=== PATIENT | male | born 1995 | race Caucasian/White ===

== ENCOUNTER 2019-01-15 17:28 | Observation (INO) | payer OTHER, SELFPAY ==
[2019-01-15] VITALS (21 sets, daily range): BP systolic 138–172; BP diastolic 72–101; PULSE 113–152; RESP 16–29; TEMP 37.3–37.8; O2SAT 94–100; BMI 23.6
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
[2019-01-15 18:12] LABS: Add Manual Diff / Slide Review NO; Basophils Absolute Auto 100 /uL (0-100); Basophils Percent Auto 0.8 % (0-2); Eosinophils Absolute Auto 0 /uL (0-450); Eosinophils Percent Auto 0.4 % (2-4); Hemoglobin 15.3 g/dL (13.5-17.5); Lymphocytes Absolute Auto 1700 /uL (1100-4500); Lymphocytes Percent Auto 15.4 % (25-40); Mean Corpuscular Hemoglobin 30.7 PG (26-34); Mean Corpuscular Volume 90.4 fL (80-100); Monocytes Absolute Auto 1000 /uL (0-900); Monocytes Percent Auto 8.9 % (3-14); Neutrophils Absolute Auto 8200 /uL (1500-7000); Neutrophils Percent Auto 74.5 % (50-75); Platelet Count 329 X10^3/uL (150-400); Red Blood Cell Count 4.98 X10^6/uL (4.5-5.9); White Blood Cell Count 11.1 X10^3/uL (4.5-11.0)
--- NOTE | 2019-01-15 18:15 | PC.NURSE ---
dry and pink.
[2019-01-15 18:17] LABS: Alanine Aminotransferase 18 IU/L (21-72); Albumin 5.2 g/dL (3.5-5.0); Albumin Globulin Ratio 1.7 (1.0-2.8); Alkaline Phosphatase 69 U/L (38-126); Aspartate Aminotransferase 36 IU/L (17-59); BUN Creatinine Ratio 7.5 (6-22); Bilirubin Total 1.5 mg/dL (0.2-1.3); Blood Urea Nitrogen 9 mg/dL (9-20); Calcium 10.1 mg/dL (8.4-10.2); Carbon Dioxide 20 mmol/L (22-32); Chloride 102 mmol/L (98-107); Estimated Glomerular Filt Rate > 60.0 mL/min (>60); Ethanol (ETOH) < 10 mg/dL; Globulin 3.1 g/dL (1.7-4.1); Glucose 130 mg/dL (70-100); HEMOLYSIS 16 (0-50); Potassium 3.1 mmol/L (3.4-5.1); Sodium 143 mmol/L (137-145); Total Protein 8.3 g/dL (6.3-8.2)
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
--- NOTE | 2019-01-15 18:29 | PC.NURSE ---
[facility]
[2019-01-15 18:30] LABS: Appearance Urine UA CLEAR; Bilirubin Urine UA NEGATIVE (NEGATIVE); Color Urine UA YELLOW; Glucose Urine UA NEGATIVE (Negative); Ketones Urine UA TRACE (NEGATIVE); Leukocyte Esterase Urine UA NEGATIVE (NEGATIVE); Nitrite Urine UA NEGATIVE (Negative); Occult Blood Urine UA 1+ (Negative); Protein Urine UA TRACE (Negative); Urobilinogen Urine UA 0.2 E.U./dL (0.2)
[2019-01-15 18:36] LABS: Urine Amphetamines Negative (Negative); Urine Barbiturates Negative (Negative); Urine Benzodiazepines Negative (Negative); Urine Cocaine Negative (Negative); Urine MDMA Negative (Negative); Urine Methadone Negative (Negative); Urine Methamphetamines Negative (Negative); Urine Morphine/Opi cutoff 2000 Negative (Negative); Urine Oxycodone Negative (Negative); Urine Phencyclidine Negative (Negative); Urine Tetrahydrocannabinol Positive (Negative); Urine Tricyclic Antidepressant Negative (Negative)
[2019-01-15 18:46] LABS: Bacteria Urine Many (>30); Culture Indicated Urine Cult Not Indicated; Hyaline Casts Urine 1-5/LPF; RBC Urine 0-1/HPF (0-5/HPF); WBC Urine 0-1/HPF (0-5/HPF)
[2019-01-15] MEDS: KETAMINE 500 MG/5 ML INJ 150 MG IV (18:47)
--- NOTE | 2019-01-15 19:11 | PC.NURSE ---
out of bed. held down by 4 er staff , medicated for comfort. with good relief.
--- NOTE | 2019-01-15 19:11 | PC.NURSE ---
with playground monitor, end tidal co2. reading at 32. sat 96 % with 2lpm via nc. hr 135. dr upton at bs.
--- NOTE | 2019-01-15 19:22 | PC.NURSE ---
cassandra chaney x2 at bs. with legal blood draw.
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
--- NOTE | 2019-01-15 20:02 | PC.NURSE ---
pt continually removed his pulse ox monitor from his finger. Replaced O2 saturation on his toe.. Pt asking questions and able to verbalize needs. Blankets provided for comfort. This RN remains at bedside.
--- NOTE | 2019-01-15 21:53 | PC.NURSE ---
Addendum entered by Geno Walker R.N. 01/15/19 23:27: 2220 - Pt continues not responding with staff. Head turned to the left, Pupils 6mm and reactive. Skin warm to touch, temp 99.1. lópez catheter removed as ordered. Addendum entered by Geno Walker R.N. 01/15/19 22:26: 2215 - Pt pulled off business process associate. Staring out room door way. Non-verbal at this time. Dr. Acosta in to assess pt. Pt non-responsive to interaction with staff at this time. Only to remove wires. Order obtained to place 2 point soft wrist restraints to prevent pt self-harm. Original Note: 2034 - Pt to room from ER. [address] Transfer to bed via sliderboard restraints secured. Pt asks questions,What are you looking at? What are you doing? however does not respond to questions. When asked a question, pt only stares. Pupils equal and reactive. Hr tachycardic in the 120's at rest. Does not respond to questions of pain. FLACC 0. Oriented to room and routine. Call light in reach. 2129 - Reviewed plan of care with Dr. Acosta. Notified that restraint order expires at 2144. Discussed pt mentation. No new orders. 2144 - Attempt to discuss restraints, safety, and plan of care with pt. Pt only stares out the door way. Notified of plan of care and encouraged pt to remain calm and cooperative. Restraints removed.
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
[2019-01-16 03:40] VITALS: BP 146/96; PULSE 94; RESP 18; TEMP 37.2; O2SAT 100
--- NOTE | 2019-01-16 07:17 | P.PN_ITS ---
Exam Vital Signs (past 8 hours): - 01/15/19 23:57 01/16/19 03:40 Temperature 99.1 F 99.0 F Pulse Rate 125 H 94 H Respiratory Rate 20 18 Blood Pressure 154/91 H 146/96 H Pulse Oximetry 98 100 Oxygen Delivery Method Room Air Oxygen Flow Rate 2 Objective Labs Result Diagrams: 01/15/19 18:00 01/15/19 18:00 Labs: Laboratory Results - last 24 hr 01/15/19 01/15/19 01/15/19 18:00 18:00 18:05 WBC 11.1 H RBC 4.98 Hgb 15.3 Hct 45.0 MCV 90.4 MCH 30.7 MCHC 34.0 RDW 13.0 Plt Count 329 Neut % (Auto) 74.5 Lymph % (Auto) 15.4 L [place] % (Auto) 8.9 Eos % (Auto) 0.4 L Baso % (Auto) 0.8 Neut # (Auto) 8200 H Lymph # (Auto) 1700 [place] # (Auto) 1000 H Eos # (Auto) 0 Baso # (Auto) 100 Sodium 143 Potassium 3.1 L Chloride 102 Carbon Dioxide 20 L BUN 9 Creatinine 1.20 Estimated GFR > 60.0 BUN/Creatinine Ratio 7.5 Glucose 130 H Calcium 10.1 Total Bilirubin 1.5 H AST 36 ALT 18 L Alkaline Phosphatase 69 Total Protein 8.3 H Albumin 5.2 H Globulin 3.1 Albumin/Globulin Ratio 1.7 Urine Color Yellow Urine Appearance Clear Urine pH 6.0 Ur Specific [place] 1.020 Urine Protein Trace H Urine Glucose (UA) Negative Urine Ketones Trace H Urine Occult Blood 1+ H Urine Nitrate Negative Urine Bilirubin Negative Urine Urobilinogen 0.2 Ur Leukocyte Esterase Negative Urine RBC 0-1/hpf Urine WBC 0-1/hpf Urine Bacteria Many (>30) H Hyaline Casts 1-5/lpf Ur Culture Indicated? Cult not indicated Nasal Screen MRSA (PCR) Urine Opiates Screen Ur Oxycodone Screen Urine Methadone Screen Ur Barbiturates Screen U Tricyclic Antidepress Ur Phencyclidine Scrn Ur Amphetamines Screen U Methamphetamines Scrn Ur MDMA Scrn (Ecstasy) U Benzodiazepines Scrn Urine Cocaine Screen U Marijuana (THC) Screen Ethyl Alcohol < 10 01/15/19 01/15/19 18:05 21:05 WBC RBC Hgb Hct MCV MCH MCHC RDW Plt Count Neut % (Auto) Lymph % (Auto) [place] % (Auto) Eos % (Auto) Baso % (Auto) Neut # (Auto) Lymph # (Auto) [place] # (Auto) Eos # (Auto) Baso # (Auto) Sodium Potassium Chloride Carbon Dioxide BUN Creatinine Estimated GFR BUN/Creatinine Ratio Glucose Calcium Total Bilirubin AST ALT Alkaline Phosphatase Total Protein Albumin Globulin Albumin/Globulin Ratio Urine Color Urine Appearance Urine pH Ur Specific [place] Urine Protein Urine Glucose (UA) Urine Ketones Urine Occult Blood Urine Nitrate Urine Bilirubin Urine Urobilinogen Ur Leukocyte Esterase Urine RBC Urine WBC Urine Bacteria Hyaline Casts Ur Culture Indicated? Nasal Screen MRSA (PCR) Negative for mrsa Urine Opiates Screen Negative Ur Oxycodone Screen Negative Urine Methadone Screen Negative Ur Barbiturates Screen Negative U Tricyclic Antidepress Negative Ur Phencyclidine Scrn Negative Ur Amphetamines Screen Negative U Methamphetamines Scrn Negative Ur MDMA Scrn (Ecstasy) Negative U Benzodiazepines Scrn Negative Urine Cocaine Screen Negative U Marijuana (THC) Screen Positive H Ethyl Alcohol Assessment & Plan Assessment & Plan narrative: I received a call from nursing at 0700 that this patient removed his own IV removed his soft restraints and left the hospital. He refused to stay or sign an ama document. Quality VTE Deep Vein Thrombosis/Pulmonary Embolism Present on Admission: No
--- NOTE | 2019-02-13 16:38 | PC.NURSE ---
Late entry- I had taken over patient care at 1930 after pt had already had CT. Pt remained in 4 point restraint with me sitting at bedside 1:1 care until time of admission.
== END 2019-01-16 07:00 | disposition left against medical advice (07) ==
LOC: ED 19:48 → AC 20:00 → ICU 20:50
PROVIDERS: Emergency Medicine; Admitting Provider Surgery; Emergency Provider Emergency Medicine; Visit Provider Surgery
DX: R41.82 Altered mental status, unspecified (principal); V87.7XXA Person injured in collision between other specified motor vehicles (traffic), initial encounter; F12.90 Cannabis use, unspecified, uncomplicated; Z78.1 Physical restraint status; Z53.21 Procedure and treatment not carried out due to patient leaving prior to being seen by health care provider; R45.1 Restlessness and agitation; R00.0 Tachycardia, unspecified
CPT/HCPCS: 36415; 70450; 72125; 80053; 80305; 80320; 81001; 85025; 87797; 93041; 94770; 96374; 99219; 99285; 99291; 99292; G0378

== ENCOUNTER 2019-01-16 11:20 | Emergency (ER) | payer OTHER, SELFPAY ==
[2019-01-15 20:35] VITALS: BMI 23.6
[2019-01-16 11:27] VITALS: BP 141/94; PULSE 102; RESP 12; TEMP 37.4; O2SAT 100
[2019-01-16 11:34] VITALS: BP 138/89; PULSE 88; RESP 18; O2SAT 98
--- NOTE | 2019-01-16 11:36 | DI.RAD.S_ITS ---
PROCEDURE: XR CHEST 1V INDICATIONS: altered mental status TECHNIQUE: One view of the chest was acquired. COMPARISON: None. FINDINGS: Surgical changes and devices: None. Lungs and pleura: Lungs are clear. No pleural effusions or pneumothorax. Mediastinum: Mediastinal contours appear normal. Heart size is normal. Bones and chest wall: No suspicious bony lesions. Overlying soft tissues appear unremarkable. IMPRESSION: No acute cardiopulmonary process is evident. Dictated by: Carroll Tucker M.D. on 01/16/2019 at 11:21 Approved by: Carroll Tucker M.D. on 01/16/2019 at 11:22
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
--- NOTE | 2019-01-16 11:49 | DI.CT.S_ITS ---
PROCEDURE: CT HEAD/BRAIN WO CON INDICATIONS: altered mental status TECHNIQUE: Noncontrast 4.5 mm thick angled axial sections acquired from the foramen magnum to the vertex, with coronal and sagittal reformats. For radiation dose reduction, the following was used: automated exposure control, adjustment of mA and/or kV according to patient size. COMPARISON: [facility], CT, CT HEAD/BRAIN WO CON, 01/15/2019, 18:46. FINDINGS: Image quality: Excellent. CSF spaces: Basal cisterns are patent. No extra-axial fluid collections. Ventricles are normal in size and shape. Brain: No midline shift. No intracranial masses or hemorrhage. Bustos-white matter interface is normal. Skull and face: Calvarium and visualized facial bones are intact, without suspicious lesions. Sinuses: Visualized sinuses and mastoids are clear. IMPRESSION: Stable head CT. No acute intracranial hemorrhage. Dictated by: Carroll Tucker M.D. on 01/16/2019 at 10:53 Approved by: Carroll Tucker M.D. on 01/16/2019 at 10:54
[2019-01-16 12:00] VITALS: BP 147/100; PULSE 98; RESP 18; O2SAT 100
[2019-01-16 12:25] LABS: Add Manual Diff / Slide Review NO; Basophils Absolute Auto 100 /uL (0-100); Basophils Percent Auto 0.5 % (0-2); Eosinophils Absolute Auto 0 /uL (0-450); Eosinophils Percent Auto 0.2 % (2-4); Hematocrit 43.2 % (41-53); Hemoglobin 14.7 g/dL (13.5-17.5); Lymphocytes Absolute Auto 1200 /uL (1100-4500); Lymphocytes Percent Auto 8.7 % (25-40); Mean Corpuscular Hemoglobin 30.9 PG (26-34); Mean Corpuscular Volume 90.9 fL (80-100); Monocytes Absolute Auto 1200 /uL (0-900); Monocytes Percent Auto 8.5 % (3-14); Neutrophils Absolute Auto 11600 /uL (1500-7000); Neutrophils Percent Auto 82.1 % (50-75); Platelet Count 259 X10^3/uL (150-400); Red Blood Cell Count 4.75 X10^6/uL (4.5-5.9); Red Cell Distribution Width 13.1 % (11.6-14.8); White Blood Cell Count 14.2 X10^3/uL (4.5-11.0)
[2019-01-16] MEDS: SODIUM CHLORIDE 0.9% 1,000 ML 1000 ML IV (12:27)
[2019-01-16 12:29] LABS: INR 1.2 (0.9-1.3); Prothrombin Time 14.3 SECONDS (10.1-12.7)
[2019-01-16 12:30] VITALS: BP 134/89; PULSE 96; RESP 19; O2SAT 100
[2019-01-16 12:31] LABS: PTT Partial Thromboplastin Tim 31 SECONDS (26.4-36.2)
[2019-01-16 12:33] LABS: Acetaminophen < 10 ug/mL (10-30); Alanine Aminotransferase 22 IU/L (21-72); Albumin 4.7 g/dL (3.5-5.0); Albumin Globulin Ratio 1.6 (1.0-2.8); Alkaline Phosphatase 57 U/L (38-126); Aspartate Aminotransferase 24 IU/L (17-59); BUN Creatinine Ratio 11.1 (6-22); Bilirubin Total 1.8 mg/dL (0.2-1.3); Blood Urea Nitrogen 10 mg/dL (9-20); Calcium 9.9 mg/dL (8.4-10.2); Carbon Dioxide 26 mmol/L (22-32); Chloride 104 mmol/L (98-107); Estimated Glomerular Filt Rate > 60.0 mL/min (>60); Ethanol (ETOH) < 10 mg/dL; Glucose 89 mg/dL (70-100); HEMOLYSIS < 15 (0-50); Potassium 3.5 mmol/L (3.4-5.1); Salicylate < 1.0 mg/dL (<20); Sodium 140 mmol/L (137-145); Total Protein 7.7 g/dL (6.3-8.2)
[2019-01-16 12:42] LABS: Ammonia (NH3) < 9.0 umol/L (9-30); Lactate (Lactic Acid) 1.2 mmol/L (0.7-2.1)
[2019-01-16 12:45] LABS: Troponin I < 0.012 ng/mL (0.01-0.034)
[2019-01-16 12:49] LABS: Prolactin 7.7 ng/mL (3.7-17.9)
[2019-01-16 13:00] VITALS: BP 138/87; PULSE 104; RESP 10; O2SAT 100
[2019-01-16 13:14] LABS: Thyroid Stimulating Hormone 1.15 uIU/mL (0.47-4.68)
--- NOTE | 2019-01-16 13:35 | PC.NURSE ---
Pt was brought back into ER via medics. Pt has very little verbal responses. Pt only follows certain directions. Brother at bedside assisting with questions.
[2019-01-16 14:31] LABS: Bacteria Urine None Seen
[2019-01-16 14:48] LABS: Urine Amphetamines Negative (Negative); Urine Barbiturates Negative (Negative); Urine Benzodiazepines Negative (Negative); Urine Cocaine Negative (Negative); Urine MDMA Negative (Negative); Urine Methadone Negative (Negative); Urine Methamphetamines Negative (Negative); Urine Morphine/Opi cutoff 2000 Negative (Negative); Urine Oxycodone Negative (Negative); Urine Phencyclidine Negative (Negative); Urine Tetrahydrocannabinol Negative (Negative); Urine Tricyclic Antidepressant Negative (Negative)
[2019-01-16 14:58] LABS: Amorphous Sediment Urine 2+; Culture Indicated Urine Cult Not Indicated; Mucus Urine 1+ (Negative); RBC Urine 1-5/HPF (0-5/HPF); WBC Urine 1-5/HPF (0-5/HPF)
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
--- NOTE | 2019-01-16 15:24 | PC.NURSE ---
Parents in room with pt. Pt appears more alert but refuses to speak with this nurse. Appears to talk with parents while nurse not in room.
--- NOTE | 2019-01-16 18:22 | PC.NURSE ---
DCR will not be here for hours
--- NOTE | 2019-01-16 19:09 | PC.NURSE ---
Pt with towel over eyes trying to walk around. Brakes had been removed from bed. Mom states having difficulty redirecting pt back to bed. Mom requesting pt to be moved to room 13 for his safety. Provider ok for room change at this time.
--- NOTE | 2019-01-16 19:21 | PC.NURSE ---
PT moved to room 13. Continues to wear towel around eyes. continues to refuse to talk to this rn. before moving rooms. Pt pacing in room.
--- NOTE | 2019-01-16 19:30 | PC.NURSE ---
Pt in rm 13 with door locked. Pt currently hitting door with fists. Pts parents are in room with him
--- NOTE | 2019-01-16 19:51 | PC.NURSE ---
Pt laying on floor crying. Refusing to take towel off of head
--- NOTE | 2019-01-16 20:17 | PC.NURSE ---
pt sitting on ground. seems calm at the moment
--- NOTE | 2019-01-16 21:25 | PC.NURSE ---
Pt pacing around room, trying to exit through the door leading the outside.
--- NOTE | 2019-01-16 21:43 | PC.NURSE ---
Unlocked bathroom door in rm 13 for pt to use. Pt opened both doors and attempted to prop them open with the mattress. Redirected pt and placed the mattress back appropriately. After pt used the restroom he stated that being in that bathroom was starting to make him panic, and feel panicky. Pt now calm in room with mom
--- NOTE | 2019-01-16 22:42 | PC.NURSE ---
Patient talking with parents in room, patient changing from agitated to calm without instigation from family. Patient easily calmed down by mother's casas directions. Patient stretcher removed from room d/t patient threading arms through the bars and pulling against them. Mattress placed on floor and patient is safe from harm. Parents at bedside, water given to patient and family.
--- NOTE | 2019-01-16 23:17 | PC.NURSE ---
Patient is has been pacing the room and talking loudly, now patient is sitting on the floor with his back to the door.
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
--- NOTE | 2019-01-16 23:45 | PC.NURSE ---
Patient is quietly laying on the mattress fidgeting with his gown and mattress parts
--- NOTE | 2019-01-17 | PC.NURSE ---
Patient was agitated including throwing his mattress against the wall and throwing himself on the mattress. Patient is now lying quietly on the mattress
--- NOTE | 2019-01-17 00:16 | PC.NURSE ---
Patient is lying quietly on the mattress.
--- NOTE | 2019-01-17 00:30 | PC.NURSE ---
Patient is lying quietly on the mattress.
--- NOTE | 2019-01-17 00:47 | PC.NURSE ---
Patient is quietly laying on the mattress, appearing to be asleep.
--- NOTE | 2019-01-17 01:00 | PC.NURSE ---
Patient is quietly sleeping on the mattress
--- NOTE | 2019-01-17 01:15 | PC.NURSE ---
Patient is pacing and knocking on the door asking for water, called security to help
--- NOTE | 2019-01-17 01:30 | PC.NURSE ---
Provided patient with a cup of water, with help from security and RAND MAKER we gave it to him and took away the empty cup when he was done, he went back to laying in bed
--- NOTE | 2019-01-17 01:45 | PC.NURSE ---
Patient is quiet, pacing and standing at door
--- NOTE | 2019-01-17 02:02 | PC.NURSE ---
Patient was pacing and standing at the door. Asked for a fan, turned down the room temperature instead. Is now laying in bed
--- NOTE | 2019-01-17 02:19 | PC.NURSE ---
Patient is laying quietly on the bed.
--- NOTE | 2019-01-17 02:30 | PC.NURSE ---
Patient is lying in bed, appearing to be asleep
--- NOTE | 2019-01-17 02:45 | PC.NURSE ---
Patient is laying quietly on the mattress
--- NOTE | 2019-01-17 03:00 | PC.NURSE ---
Got the patient some ice when he asked, he is now laying in bed
--- NOTE | 2019-01-17 03:15 | PC.NURSE ---
Patient is lying quietly in bed
--- NOTE | 2019-01-17 03:30 | PC.NURSE ---
Patient is standing by the door knocking, he asked for gum I offered him some food, he declined. He continues to knock on the door, he does not reply when I ask him if he needs anything
--- NOTE | 2019-01-17 03:45 | PC.NURSE ---
Patient is standing by the door. He knocked at the door and asked for food and a blanket, so I got it for him. while in the room I noticed that he voided on the floor so we got him a urinal and told him that if he needed to pee to use the urinal
--- NOTE | 2019-01-17 04:00 | PC.NURSE ---
Patient appeared to spit up the pudding I gave him earlier, he is pacing the room and rattling the urinal
--- NOTE | 2019-01-17 04:18 | PC.NURSE ---
Patient paced the room banging urinal on the wall and door, Patient tore up his cup of ice and wrote help in it in feces before slipping it under the door. He violently hit the urinal on the door and knocked his hand. Patient called for help when I asked if he needed anything he said he needed the bathroom opened so that he could wash a wound. I got the nurse and the nurse talked to him. The nurse told the patient that once he was calm for a few minutes he would go in and help get him sorted. Patient is now laying on the mattress.
--- NOTE | 2019-01-17 04:30 | PC.NURSE ---
Patient is lying in the mattress, whistling
--- NOTE | 2019-01-17 04:45 | PC.NURSE ---
Patient is sitting on the mattress whistling
--- NOTE | 2019-01-17 05:00 | PC.NURSE ---
Patient is lying still on the mattress
--- NOTE | 2019-01-17 05:01 | PC.NURSE ---
Patient is lying quietly on the mattress
--- NOTE | 2019-01-17 05:14 | PC.NURSE ---
Patient is pacing the room. Knocking on the door, when I ask him if he needs anything he does not respond.
--- NOTE | 2019-01-17 05:19 | PC.NURSE ---
Patient was standing at the door asking for a timer to see when his family will get here.I let him know that isn't possible, I encouraged him to sit down and relax, now he is laying on the mattress.
--- NOTE | 2019-01-17 05:30 | PC.NURSE ---
Patient is standing at the door asking october I open the door and when I answer he continues to repeat the question over and over.
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
--- NOTE | 2019-01-17 06:04 | PC.NURSE ---
Nurse tried to give patient a washcloth while the patient was near the far side of the room, and the patient charged the door, pushing passed the nurse and down the DI hallway, I called 911 and let them know what was happening, when I was done with dispatchers I went down the DI hallway along with the three officers. The officers restrained the patient and returned the patient back to room 13. The officers helped to hold the patient while the nurses administered medication. The patient tried to push part the officers multiple times and when the doctor tried to talk with the patient tried to push past him too. With the help of the officers we were able to keep the patient into the room. The patient is now lying on the mattress under his blankets.
[2019-01-17] MEDS: HALOPERIDOL 5 MG/ML VIAL IM (06:09)
[2019-01-17] MEDS: LORazepam 2 MG/ML INJ IM (06:10)
[2019-01-17] MEDS: diphenhydrAMINE 50 MG/ML VIAL IM (06:10)
--- NOTE | 2019-01-17 06:15 | PC.NURSE ---
Patient is lying quietly on the mattress
--- NOTE | 2019-01-17 06:32 | PC.NURSE ---
The nurse and myself went into the room and got vital signs on the patient, the patient was somewhat sedated and calm. The patient shivered, fidgeted, and tried to get up while we were taking the blood pressure, so we got the patient a warm blanket and encouraged him to remain calm. Currently the patient is laying on the mattress under his blankets.
--- NOTE | 2019-01-17 06:33 | PC.NURSE ---
He was lying on mattress on floor,I was able to assess him for his safety and take vital signs,he stated I want to stand up.I was able to calmly talk to him and he then laid supine after sitting up.I saw some bruising on his knuckles where he had been banging on the door earlier.
--- NOTE | 2019-01-17 06:45 | PC.NURSE ---
Patient is lying on the mattress under the blankets
--- NOTE | 2019-01-17 07:04 | PC.NURSE ---
went in the room and did and exam on him.His lungs were clear and his pulses were strong.
--- NOTE | 2019-01-17 07:10 | PC.NURSE ---
Patient is lying on the mattress under the blankets, nurse, housekeeping and I went in to clean the room, the dirty blankets, pillow and urinal is out of the room and housekeeping mopped the floor.
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
[2019-01-17 09:15] VITALS: BP 127/79; PULSE 84; RESP 20; O2SAT 93
--- NOTE | 2019-01-17 09:24 | PC.NURSE ---
VS on Pt done. Pt refuses temp. S/W father who states mother is on her way.
--- NOTE | 2019-01-17 10:32 | PC.NURSE ---
Pt is 1:1 with staff observation. Mother had been in room but has left to sleep in car. Gives cell phone number and requests we call her when patients awakens.
--- NOTE | 2019-01-17 13:48 | PC.NURSE ---
[facility] to come again and re evaluate patient
--- NOTE | 2019-01-17 14:21 | PC.NURSE ---
Mom is given paper scrubs as she wants to work on getting pt awake for [facility] evaluation. Father is sleeping in room 3
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
--- NOTE | 2019-01-17 15:03 | PC.NURSE ---
Pt yelling in room. Awake. Mom is removed from room. [facility] [place] is called
--- NOTE | 2019-01-17 16:28 | PC.NURSE ---
Taylor from [facility] here to s/w pt and detain for grave disability.
--- NOTE | 2019-01-17 18:04 | PC.NURSE ---
Pts dad reports that the pt ate half of his sandwich and drank some fluids
[2019-01-17 19:46] VITALS: BP 133/88; PULSE 106; RESP 19; TEMP 36.4; O2SAT 98
[2019-01-17 19:48] LABS: Add Manual Diff / Slide Review NO; Basophils Absolute Auto 100 /uL (0-100); Basophils Percent Auto 0.9 % (0-2); Eosinophils Absolute Auto 200 /uL (0-450); Eosinophils Percent Auto 1.8 % (2-4); Hematocrit 42.3 % (41-53); Hemoglobin 14.5 g/dL (13.5-17.5); Lymphocytes Absolute Auto 1300 /uL (1100-4500); Lymphocytes Percent Auto 10.5 % (25-40); Mean Corpuscular HGB Conc 34.3 % (30-36); Mean Corpuscular Hemoglobin 30.9 PG (26-34); Mean Corpuscular Volume 90.1 fL (80-100); Monocytes Absolute Auto 1100 /uL (0-900); Monocytes Percent Auto 9.2 % (3-14); Neutrophils Absolute Auto 9600 /uL (1500-7000); Neutrophils Percent Auto 77.6 % (50-75); Platelet Count 242 X10^3/uL (150-400); Red Blood Cell Count 4.69 X10^6/uL (4.5-5.9); Red Cell Distribution Width 12.8 % (11.6-14.8); White Blood Cell Count 12.4 X10^3/uL (4.5-11.0)
[2019-01-17] MEDS: HALOPERIDOL 5 MG TABLET PO (19:55)
--- NOTE | 2019-01-17 19:56 | PC.NURSE ---
Discussed w/ DCR (Taylor) and Dr. Santiago regarding ongoing seclusion. Pt has had periods of agitation today but has not attempted to leave as he did last night, may be because of closed door. KELLEY and Dr. Santiago (after receiving report from Dr. Hurtado) both feel that patient has had multiple attempts to leave facility and has shown grave disability / inability to keep himself safe. At this time would like seclusion continued.
[2019-01-17 20:01] LABS: BUN Creatinine Ratio 16.3 (6-22); Blood Urea Nitrogen 13 mg/dL (9-20); Calcium 9.4 mg/dL (8.4-10.2); Carbon Dioxide 27 mmol/L (22-32); Chloride 103 mmol/L (98-107); Estimated Glomerular Filt Rate > 60.0 mL/min (>60); Glucose 111 mg/dL (70-100); HEMOLYSIS < 15 (0-50); Potassium 3.7 mmol/L (3.4-5.1); Sodium 139 mmol/L (137-145)
[2019-01-17] MEDS: POTASSIUM CHLORIDE 20 MEQ TAB PO (20:04)
--- NOTE | 2019-01-17 20:05 | PC.NURSE ---
Patient's father updated on plan of care. Labs drawn, oral meds given, vital signs taken, patient quiet and cooperative throughout. Awaiting lab results then will fax to awaiting facility.
--- NOTE | 2019-01-17 21:15 | PC.NURSE ---
pt laying calmly on floor. Door is open and unlocked
--- NOTE | 2019-01-17 22:05 | PC.NURSE ---
Patient continues to sleep safely on mattress. Has not attempted to leave the room. Equal rise and fall of chest, security at bedside. Call placed to family, Dad (Ryan) and updated on plan of care. Father will call back in the morning for an update. Still awaiting call from [facility] regarding transfer of patient tonight. [facility] also called and Kelsi requested information update on patient.
--- NOTE | 2019-01-17 23:26 | PC.NURSE ---
Patient sleeping, equal rise and fall of chest. Moves all extremities. Security outside of door. Patient not in restraint/seclusion at this time.
--- NOTE | 2019-01-17 23:33 | PC.NURSE ---
Call placed to [facility] for update on patient placement. RN states she will call provider at this time and call ER back.
[2019-01-18 02:01] VITALS: BP 130/86; PULSE 90; RESP 16; TEMP 36.9
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
--- NOTE | 2019-01-18 02:27 | PC.NURSE ---
Patient cooperative and calm throughout transfer to EMS stretcher. Cooperative with restraints placement by EMS.
== END 2019-01-18 02:20 ==
PROVIDERS: Emergency Medicine; Emergency Provider Emergency Medicine
DX: F29 Unspecified psychosis not due to a substance or known physiological condition (principal)
CPT/HCPCS: 36415; 70450; 71045; 80048; 80053; 80305; 80320; 80329; 81003; 81015; 82140; 83605; 84146; 84443; 84484; 85025; 85610; 85730; 87040; 93005; 96360; 96361; 96372; 99285; G0480; J1200; J1630; J2060